=== PATIENT | female | born 1975 | race Asian ===

== ENCOUNTER 2016-10-04 20:50 | Inpatient (IN) | payer SELFPAY ==
[~2016-10-04] VITALS: Ht 170.2 cm; Wt 78.0 kg
[2016-10-04] MEDS ORDERED: LACTATED RINGERS 1,000 ML IV SCH (21:16)
[2016-10-04] MEDS ORDERED: PROMETHAZINE 25 MG/ML VIAL IVP PRN (21:20)
[2016-10-04] MEDS ORDERED: OXYTOCIN 10 UNITS/ML VIAL IM SCH (21:20)
[2016-10-04] MEDS ORDERED: LACTATED RINGERS 500 ML IV ONE (21:20)
[2016-10-04] MEDS ORDERED: CARBOPROST 250 MCG/ML AMP IM PRN (21:20)
[2016-10-04] MEDS ORDERED: NALBUPHINE HYDROCHLORIDE 10 MG/ML VIAL IVP PRN (21:20)
[2016-10-04] MEDS ORDERED: METHYLERGONOVINE 0.2 MG/ML AMP IM PRN (21:20)
[2016-10-04] MEDS ORDERED: OXYTOCIN 20 UNITS/LR PREMIX 1,000 ML IV SCH (22:00)
[2016-10-04] MEDS ORDERED: OXYTOCIN 10 UNITS/ML VIAL ONE (22:12)
[2016-10-04] MEDS ORDERED: OXYTOCIN 20 UNITS/LR PREMIX 1,000 ML IV ONE (22:13)
[2016-10-04 22:27] VITALS: BP 128/77
[2016-10-04] MEDS ORDERED: NALBUPHINE HYDROCHLORIDE 10 MG/ML VIAL ONE (22:40)
[2016-10-04] MEDS ORDERED: PROMETHAZINE 25 MG/ML VIAL ONE (22:40)
[2016-10-05] MEDS ORDERED: WITCH HAZEL 40 PAD PACKAGE TP PRN (00:55)
[2016-10-05] MEDS ORDERED: IBUPROFEN 800 MG TAB PO PRN (00:55)
[2016-10-05] MEDS ORDERED: MEASLES, MUMPS, AND RUBELLA 1 VIAL SQVAC PRN (00:55)
[2016-10-05] MEDS ORDERED: BENZOCAINE/MENTHOL 20%-0.5% 60 GM CAN TP PRN (00:55)
[2016-10-05] MEDS ORDERED: OXYTOCIN 10 UNITS/ML VIAL IM PRN (00:55)
[2016-10-05] MEDS ORDERED: METHYLERGONOVINE 0.2 MG/ML AMP IM PRN (00:55)
[2016-10-05] MEDS ORDERED: HYDROcodone/APAP 5/325 MG 1 TAB TAB PO PRN (00:55)
[2016-10-05] MEDS ORDERED: oxyCODONE/APAP 5/325 MG 1 TAB TAB PO PRN (00:55)
[2016-10-05] MEDS ORDERED: TEMAZEPAM 15 MG CAP PO PRN (00:55)
[2016-10-05] MEDS ORDERED: MORPHINE SULFATE 10 MG/ML SYR ONE (01:08)
[2016-10-05] MEDS ORDERED: MORPHINE SULFATE 10 MG/ML SYR IVP PRN (01:10)
[2016-10-05] MEDS ORDERED: ROPIVACAINE 0.2%/NS PREMIX 250 ML EPI ONE (01:12)
[2016-10-05] MEDS ORDERED: ROPIVACAINE 0.2%/NS PREMIX 250 ML EPI SCH (02:35)
[2016-10-05] MEDS ORDERED: LACTATED RINGERS 1,000 ML IV SCH (06:50)
--- NOTE | 2016-10-05 08:15 | NUR ---
PATIENT HAS BEEN SCREENED AND CATEGORIZED LOW NUTRITION RISK. PATIENT WILL BE SEEN WITHIN 7 DAYS OF ADMISSION. 10/11/[address]
[2016-10-05] MEDS ORDERED: OXYTOCIN 10 UNITS/ML VIAL ONE (09:00)
[2016-10-05] MEDS ORDERED: MISOPROSTOL 100 MCG TAB ONE (09:14)
[2016-10-05] MEDS ORDERED: METHYLERGONOVINE 0.2 MG/ML AMP ONE (09:15)
[2016-10-05] MEDS ORDERED: AMPICILLIN 1,000 MG VIAL ONE (15:16)
[2016-10-05] MEDS ORDERED: DOCUSATE SOD/SENNA 50/8.6 MG 1 TAB PO SCH (21:00)
[2016-10-06] MEDS ORDERED: INFLUENZA VIRUS VACCINE QUAD 0.5 ML SYR IMVAC SCH (04:55)
[2016-10-06] MEDS ORDERED: MOTRIN600 MG PO (11:18)
== END 2016-10-06 22:57 | disposition home or self-care (01) | DRG 775 ==
LOC: MLD 20:50 → OBSVTOIN 21:26 → MFCC 10-05 11:15
PROVIDERS: ADMIT Obstetrics & Gynecology; ATTEND Obstetrics & Gynecology
PROC: 10E0XZZ Delivery of Products of Conception, External Approach (ICD-10-PCS; principal; 2016-10-05)
PROC: 10907ZC Drainage of Amniotic Fluid, Therapeutic from Products of Conception, Via Natural or Artificial Opening (ICD-10-PCS; 2016-10-05)
PROC: 3E033VJ Introduction of Other Hormone into Peripheral Vein, Percutaneous Approach (ICD-10-PCS; 2016-10-05)
PROC: 0HQ9XZZ Repair Perineum Skin, External Approach (ICD-10-PCS; 2016-10-05)
PROC: 3E0S3CZ (ICD-10-PCS; 2016-10-05)
PROC: 00HU33Z Insertion of Infusion Device into Spinal Canal, Percutaneous Approach (ICD-10-PCS; 2016-10-05)
PROC: 3E0234Z Introduction of Serum, Toxoid and Vaccine into Muscle, Percutaneous Approach (ICD-10-PCS; 2016-10-06)
DX: O69.81X0 Labor and delivery complicated by cord around neck, without compression, not applicable or unspecified (principal); O09.513 Supervision of elderly primigravida, third trimester; Z3A.38 38 weeks gestation of pregnancy; O70.0 First degree perineal laceration during delivery; Z23 Encounter for immunization